=== PATIENT | female | born 1995 | race African-American/Black ===

== ENCOUNTER 2018-08-18 16:37 | Emergency (ER) | payer OTHER ==
[2018-08-18] MEDS ORDERED: DIPHTH,PERTUSS(ACELL),TET 0.5 ML DISP.SYRIN IM ONE (16:41)
[2018-08-18 16:49] VITALS: BP 123/82; PULSE 98; TEMP 98.5; BMI 24.7
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
== END 2018-08-18 17:14 | disposition home or self-care (01) ==
LOC: FER 16:37
PROC: 3E0234Z Introduction of Serum, Toxoid and Vaccine into Muscle, Percutaneous Approach (ICD-10-PCS; principal; 2018-08-18)
DX: S21.251A Open bite of right back wall of thorax without penetration into thoracic cavity, initial encounter (principal); W50.3XXA Accidental bite by another person, initial encounter; Y93.89 Activity, other specified; Y92.159 Unspecified place in reform school as the place of occurrence of the external cause; Y99.0 Civilian activity done for income or pay
CPT/HCPCS: 90715; 99281-25

== ENCOUNTER 2022-09-18 17:11 | Emergency (ER) | payer BC, OTHER ==
[2022-09-18 21:27] VITALS: BP 111/79; PULSE 73; RESP 19; TEMP 98.1; BMI 29.2
[2022-09-18] MEDS ORDERED: LIDOCAINE 5% TOPICAL PATCH TP ONE (22:18)
[2022-09-18] MEDS ORDERED: ACETAMINOPHEN 500 MG TABLET (FP) PO ONE (22:19)
[2022-09-18] MEDS ORDERED: KETOROLAC TROMETHAMINE 15 MG/ML VIAL IM ONE (22:19)
[2022-09-18] MEDS ORDERED: LIDOCAINE 5% TOPICAL PATCH ONE (22:26)
[2022-09-18] MEDS ORDERED: ACETAMINOPHEN 325 MG TABLET (FP) ONE (22:26)
[2022-09-18] MEDS ORDERED: KETOROLAC TROMETHAMINE 15 MG/ML VIAL ONE (22:27)
[2022-09-19] MEDS ORDERED: LIDOCAINE PATCH REMOVAL MC SCH (10:00)
== END 2022-09-18 22:46 | disposition home or self-care (01) ==
LOC: JER 17:11
PROC: 3E0233Z Introduction of Anti-inflammatory into Muscle, Percutaneous Approach (ICD-10-PCS; principal; 2022-09-18)
DX: R07.89 Other chest pain (principal); M54.6 Pain in thoracic spine
CPT/HCPCS: 93005; 93010; 99284-25